=== PATIENT | female | born 1960 | race American Indian/Alaskan Native ===

== ENCOUNTER 2019-04-09 10:30 | Outpatient (CLI) | payer OTHER ==
--- NOTE | 2019-04-09 12:29 | XRay Report ---
CERVICAL SPINE, 4 VIEWS INDICATION: NECK PAIN. COMPARISON: None. IMPRESSION: Osteopenia is suspected. There has been previous anterior fusion with metal plate and scr ews from C3-C6. Bony fusion of the disc spaces is demonstrated at these levels. Moderate degenerativ e disc disease is identified at C6-7. Mild degenerative disc disease at C2-3 and C7-T1. The posterior elements are unremarkable. No acute osseous or soft tissue abnormality. LUMBOSACRAL SPINE, 3 VIEWS INDICATION: Back pain. COMPARISON: None. IMPRESSION: Normal alignment. Mild degenerative disc disease and facet arthropathy are identified a t all levels. No acute osseous or soft tissue abnormality. No bone lesion. BILATERAL KNEES, 2 VIEWS INDICATION: Knee pain. COMPARISON: None. IMPRESSION: No acute osseous or soft tissue abnormality. Mild medial compartment joint space narr owing and mild retropatellar spurring are identified in both knees. No evidence for fracture, bone le margie or significant joint effusion. Signer Name: Jean Whittaker Jr, MD Signed: 04/09/2019 12:25 PM Workstation Name: [id number]
== END 2019-04-09 10:31 | disposition home or self-care (01) ==
LOC: XRAY 10:30
PROVIDERS: ATTEND Internal Medicine
DX: M50.33 Other cervical disc degeneration, cervicothoracic region (principal); M76.892 Other specified enthesopathies of left lower limb, excluding foot; M76.891 Other specified enthesopathies of right lower limb, excluding foot; M12.88 Other specific arthropathies, not elsewhere classified, other specified site; M51.36 Other intervertebral disc degeneration, lumbar region; F32.9 Major depressive disorder, single episode, unspecified; Z90.710 Acquired absence of both cervix and uterus
CPT/HCPCS: 72040; 72100